=== PATIENT | female | born 1955 | race Caucasian/White ===

== ENCOUNTER 2016-10-22 06:09 | Day surgery (SDC) | payer OTHER ==
[2016-10-22] MEDS ORDERED: LACTATED RINGERS 1,000 ML IV ONE (06:57)
[2016-10-22] MEDS ORDERED: MIDAZOLAM 2 MG/2 ML VIAL IVP ONE (07:30)
[2016-10-22] MEDS ORDERED: fentaNYL 250 MCG/5 ML VIAL IVP ONE (07:30)
== END 2016-10-22 06:10 | disposition home or self-care (01) ==
PROC: 0DJD8ZZ Inspection of Lower Intestinal Tract, Via Natural or Artificial Opening Endoscopic (ICD-10-PCS; principal; 2016-10-22 07:30)
DX: Z12.11 Encounter for screening for malignant neoplasm of colon (principal); Q43.8 Other specified congenital malformations of intestine; K64.8 Other hemorrhoids; F41.9 Anxiety disorder, unspecified; Z87.891 Personal history of nicotine dependence; I10 Essential (primary) hypertension
CPT/HCPCS: 45378; J3010; J7120

== ENCOUNTER 2016-11-16 15:21 | Outpatient (CLI) | payer OTHER | END 2016-11-16 15:22 | disposition home or self-care (01) | DX: G47.30 Sleep apnea, unspecified (principal); R06.83 Snoring; G47.10 Hypersomnia, unspecified ==

== ENCOUNTER 2018-01-31 08:00 | Outpatient (CLI) | payer OTHER ==
[2018-01-31 14:00] LABS: BASOPHILS # (AUTO) 0.1 10^3/uL (0.0-0.1); EOSINOPHILS # (AUTO) 0.3 10^3/uL (0.0-0.7); LYMPHOCYTES # (AUTO) 1.5 10^3/uL (1.5-3.5); LYMPHOCYTES % (AUTO) 24.1 %; MEAN CORPUSCULAR HEMOGLOBIN 33.5 pg (27.0-31.0); MEAN CORPUSCULAR HGB CONC 33.9 g/dL (32.0-36.0); MEAN CORPUSCULAR VOLUME 98.6 fL (81.0-99.0); MEAN PLATELET VOLUME 9.3 fL (7.9-10.8); MONOCYTES # (AUTO) 0.5 10^3/uL (0.0-1.0); MONOCYTES % (AUTO) 8.4 %; NEUTROPHILS % (AUTO) 62.5 %; PLT - PLATELET COUNT 253 10^3/uL (130-450); RED BLOOD COUNT 4.17 10^6/uL (4.20-5.40); RED CELL DISTRIBUTION WIDTH 12.4 % (12.0-15.0); WHITE BLOOD COUNT 6.4 x10^3/uL (4.8-10.8)
[2018-01-31 14:15] LABS: ALBUMIN/GLOBULIN RATIO 1.2 (1.0-2.2); ALKALINE PHOSPHATASE 27 IU/L (42-121); ALT ALANINE AMINOTRANSFERASE 60 IU/L (10-60); AST ASPARTATE AMINOTRANSFERASE 46 IU/L (10-42); BILIRUBIN,TOTAL 0.7 mg/dL (0.2-1.0); BUN - BLOOD UREA NITROGEN 31 mg/dL (6-20); CALCIUM 9.2 mg/dL (8.5-10.3); CARBON DIOXIDE - CO2 28 mmol/L (21-32); CHLORIDE 102 mmol/L (101-111); CHOL/HDL RATIO 2.3 (<4.4); CHOLESTEROL 222 mg/dL; CREATININE 0.7 mg/dL (0.4-1.0); GFR - MDRD 85 (>89); GLUCOSE 101 mg/dL (70-100); HDL CHOLESTEROL 98 mg/dL; LDL CHOLESTEROL,CALCULATED 114 mg/dL; LDL/HDL RATIO 1.2 (<4.4); SODIUM 137 mmol/L (135-145); TOTAL PROTEIN 7.3 g/dL (6.7-8.2); VLDL CHOLESTEROL 10 mg/dL
[2018-01-31 14:23] LABS: HB2 TOTAL 15.5 g/dL; HEMOGLOBIN A1C 0.54 g/dL; HEMOGLOBIN A1C % 5.3 % (4.6-6.2)
== END 2018-01-31 08:01 | disposition home or self-care (01) ==
LOC: LAB.R 08:00
PROVIDERS: ATTEND Physician Assistant Medical
DX: Z00.00 Encounter for general adult medical examination without abnormal findings (principal); R73.01 Impaired fasting glucose
CPT/HCPCS: 80053; 80061; 83036; 83721; 84443; 85025

== ENCOUNTER 2018-02-23 10:37 | Outpatient (CLI) | payer OTHER ==
--- NOTE | 2018-02-23 13:04 | DEXA Report ---
Procedure Date: 02/23/2018 Accession Number: [id number] / [id number] Procedure: DEX - Dexa Spine and/or Hip CPT Code: FULL RESULT: EXAM: Dexa Spine and/or Hip DATE: 02/23/2018 11:02 AM CLINICAL HISTORY: POST MENOPAUSAL TECHNIQUE: Dual energy x-ray absorptiometry (DXA) was performed on a [employer]Near System. Regions measured are the AP Spine, femoral neck, and if needed forearm. COMPARISON: None. In accordance with the International Society for Clinical Densitometry (ISCD) guidelines, data from previous exams may be reanalyzed using current recommendations and techniques. This is done to allow a more accurate basis for comparison with the current study. FINDINGS: The data for the lumbar spine is as follows: BMD (g/cm/cm) T-SCORE Z-SCORE REGION L1 0.953 -1.5 -0.3 L2 0.965 -2.0 -0.8 L3 1.126 -0.6 0.6 L4 1.185 -0.1 1.1 TOTAL 1.071 -0.9 0.3 NOTE: All evaluable vertebrae are used for classification The data for the hip is as follows: BMD (g/cm/cm) T-SCORE Z-SCORE REGION Neck 0.992 -0.3 0.9 TOTAL 0.967 -0.3 0.6 NOTE: The femoral neck or total proximal femur, whichever is lowest, is used for classification. IMPRESSION: THE WHO CLASSIFICATION BASED ON THE INTERNATIONAL REFERENCE STANDARD IS NORMAL. THE FRACTURE RISK IS NOT INCREASED. RECOMMENDATION: Patients with diagnosis of osteoporosis or osteopenia should have regular bone mineral density assessment. For those eligible for Medicare, routine testing is allowed once every 2 years. Testing frequency can be increased for patients who have rapidly progressing disease or for those who are receiving medical therapy to restore bone mass. COMMENT: World Health Organization (WHO) definitions for osteoporosis and osteopenia: NORMAL BMD: T-score at -1.0 or higher, fracture risk is low OSTEOPENIA BMD: T-score between -1.0 and -2.5, fracture risk is increased. OSTEOPOROSIS BMD: T-score at -2.5 or lower, fracture risk is high. National Osteoporosis Foundation recommends: 1. Obtain adequate dietary calcium (at least 1200 mg per day) and vitamin D (400-800 international units per day). 2. Participate, as appropriate, in regular weightbearing and muscle-strengthening exercise. 3. Avoid tobacco use and reduce alcohol and caffeine intake. 4. For more detailed information see the website at www.NOF.org.
== END 2018-02-23 10:38 | disposition home or self-care (01) ==
LOC: DI 10:37
PROVIDERS: ATTEND Physician Assistant Medical
DX: Z78.0 Asymptomatic menopausal state (principal)
CPT/HCPCS: 77080

== ENCOUNTER 2018-02-23 10:39 | Outpatient (CLI) | payer OTHER ==
--- NOTE | 2018-02-24 16:48 | Mammography Report ---
Procedure Date: 02/23/2018 Accession Number: [id number] / [id number] Procedure: ISIS - Screening Mammo Dig Bilat CPT Code: FULL RESULT: EXAM: Screening Mammo Dig Bilat DATE: 02/23/2018 11:22 AM CLINICAL HISTORY: 62-year-old with history of late childbearing for screening TECHNIQUE: Bilateral CC, laterally exaggerated CC, MLO views were obtained. COMPARISON: The patient has had previous mammograms in the [facility]. Reports are available for comparison, but no films are available for comparison. As such, this will serve as a new baseline. FINDINGS: The breasts demonstrate heterogeneously dense fibroglandular parenchyma bilaterally. Punctate, typically benign calcifications are present. No suspicious masses, clustered microcalcifications, or regions of architectural distortion are identified. IMPRESSION: Benign findings RECOMMENDATION: Routine annual screening unless otherwise clinically indicated. BIRADS CATEGORY 2: Benign findings STANDARD QUALIFYING STATEMENTS: 1. This examination was reviewed with the aid of Computer-Aided Detection (CAD). 2. A negative or benign imaging report should not delay biopsy if clinically suspicious findings are present. Consider surgical consultation if warrented. More than 5% of cancers are not identified by imaging. 3. Dense breasts may obscure an underlying neoplasm.
== END 2018-02-23 10:40 | disposition home or self-care (01) ==
LOC: DI 10:39
PROVIDERS: ATTEND Physician Assistant Medical
DX: Z12.31 Encounter for screening mammogram for malignant neoplasm of breast (principal)
CPT/HCPCS: 77067

== ENCOUNTER 2018-03-01 09:10 | Outpatient (CLI) | payer OTHER | END 2018-03-01 09:11 | disposition home or self-care (01) | LOC: SC 09:10 | PROVIDERS: ATTEND Internal Medicine Pulmonary Disease | DX: G47.30 Sleep apnea, unspecified (principal); G47.10 Hypersomnia, unspecified; R06.83 Snoring; G47.8 Other sleep disorders | CPT/HCPCS: 99212; 99213 ==

== ENCOUNTER 2018-05-11 15:52 | Outpatient (CLI) | payer OTHER | END 2018-05-11 15:53 | disposition home or self-care (01) | LOC: SC 15:52 | PROVIDERS: ATTEND Nurse Practitioner Family | DX: G47.33 Obstructive sleep apnea (adult) (pediatric) (principal) | CPT/HCPCS: 99212; 99214 ==

== ENCOUNTER 2018-05-26 16:20 | Outpatient (CLI) | payer OTHER ==
[2018-05-26 18:51] LABS: ALBUMIN 4.1 g/dL (3.2-5.5); ALKALINE PHOSPHATASE 39 IU/L (42-121); ALT ALANINE AMINOTRANSFERASE 54 IU/L (10-60); AST ASPARTATE AMINOTRANSFERASE 42 IU/L (10-42); BILIRUBIN,TOTAL 0.6 mg/dL (0.2-1.0); TOTAL PROTEIN 6.7 g/dL (6.7-8.2)
[2018-05-26 19:13] LABS: BILIRUBIN,DIRECT < 0.1 mg/dL (0.1-0.5)
== END 2018-05-26 16:21 | disposition home or self-care (01) ==
LOC: LAB.R 16:20
PROVIDERS: ATTEND Physician Assistant Medical
DX: R84.5 Abnormal microbiological findings in specimens from respiratory organs and thorax (principal)
CPT/HCPCS: 80076

== ENCOUNTER 2019-03-15 11:24 | Outpatient (CLI) | payer BC ==
[2019-03-15 18:04] LABS: HB2 TOTAL 14.7 g/dL; HEMOGLOBIN A1C 0.59 g/dL; HEMOGLOBIN A1C % 5.8 % (4.6-6.2)
[2019-03-15 18:13] LABS: ALBUMIN 4.4 g/dL (3.2-5.5); ALBUMIN/GLOBULIN RATIO 1.8 (1.0-2.2); ALKALINE PHOSPHATASE 27 IU/L (42-121); ALT ALANINE AMINOTRANSFERASE 41 IU/L (10-60); AST ASPARTATE AMINOTRANSFERASE 39 IU/L (10-42); BILIRUBIN,TOTAL 0.6 mg/dL (0.2-1.0); BUN - BLOOD UREA NITROGEN 21 mg/dL (6-20); CALCIUM 9.3 mg/dL (8.5-10.3); CARBON DIOXIDE - CO2 28 mmol/L (21-32); CHLORIDE 103 mmol/L (101-111); CHOL/HDL RATIO 2.3 (<4.4); CHOLESTEROL 205 mg/dL; CREATININE 0.6 mg/dL (0.4-1.0); GFR - MDRD 102 (>89); GLUCOSE 107 mg/dL (70-100); HDL CHOLESTEROL 90 mg/dL; SODIUM 139 mmol/L (135-145); TOTAL PROTEIN 6.9 g/dL (6.7-8.2)
== END 2019-03-15 11:25 | disposition home or self-care (01) ==
LOC: LAB.S 11:24
PROVIDERS: ATTEND Internal Medicine
DX: E78.2 Mixed hyperlipidemia (principal); R73.01 Impaired fasting glucose
CPT/HCPCS: 36415; 80053; 80061; 83036; 83721

== ENCOUNTER 2021-01-24 08:07 | Outpatient (CLI) | payer OTHER ==
[2021-01-24 14:46] LABS: BASOPHILS # (AUTO) 0.1 10^3/uL (0.0-0.1); BASOPHILS % (AUTO) 0.8 %; EOSINOPHILS # (AUTO) 0.3 10^3/uL (0.0-0.7); EOSINOPHILS % (AUTO) 3.5 %; HCT - HEMATOCRIT 42.5 % (37.0-47.0); HGB - HEMOGLOBIN 14.1 g/dL (12.0-16.0); LYMPHOCYTES # (AUTO) 1.8 10^3/uL (1.5-3.5); LYMPHOCYTES % (AUTO) 25.2 %; MEAN CORPUSCULAR HGB CONC 33.2 g/dL (32.0-36.0); MEAN CORPUSCULAR VOLUME 102.4 fL (81.0-99.0); MEAN PLATELET VOLUME 11.4 fL (7.9-10.8); MONOCYTES # (AUTO) 0.7 10^3/uL (0.0-1.0); MONOCYTES % (AUTO) 9.8 %; NEUTROPHILS # (AUTO) 4.3 10^3/uL (1.5-6.6); NEUTROPHILS % (AUTO) 60.1 %; PLT - PLATELET COUNT 297 10^3/uL (130-450); RED BLOOD COUNT 4.15 10^6/uL (4.20-5.40); RED CELL DISTRIBUTION WIDTH 11.9 % (12.0-15.0); WHITE BLOOD COUNT 7.2 x10^3/uL (4.8-10.8)
[2021-01-24 15:29] LABS: THYROID STIMULATING HORMONE 2.56 uIU/mL (0.34-5.60)
[2021-01-24 15:33] LABS: ALBUMIN 4.3 g/dL (3.2-5.5); ALBUMIN/GLOBULIN RATIO 1.5 (1.0-2.2); ALKALINE PHOSPHATASE 27 IU/L (42-121); ALT ALANINE AMINOTRANSFERASE 27 IU/L (10-60); AST ASPARTATE AMINOTRANSFERASE 25 IU/L (10-42); BILIRUBIN,TOTAL 0.7 mg/dL (0.2-1.0); BUN - BLOOD UREA NITROGEN 21 mg/dL (6-20); CALCIUM 9.6 mg/dL (8.5-10.3); CARBON DIOXIDE - CO2 30 mmol/L (21-32); CHLORIDE 100 mmol/L (101-111); CHOL/HDL RATIO 2.5 (<4.4); CHOLESTEROL 221 mg/dL; CREATININE 0.7 mg/dL (0.4-1.0); GFR - MDRD 85 (>89); GLUCOSE 117 mg/dL (70-100); HDL CHOLESTEROL 89 mg/dL; LDL CHOLESTEROL,CALCULATED 121 mg/dL; LDL/HDL RATIO 1.4 (<4.4); POTASSIUM 4.2 mmol/L (3.5-5.0); SODIUM 139 mmol/L (135-145); TOTAL PROTEIN 7.1 g/dL (6.7-8.2); TRIGLYCERIDES 57 mg/dL; VLDL CHOLESTEROL 11 mg/dL
== END 2021-01-24 08:08 | disposition home or self-care (01) ==
LOC: LAB.S 08:07
PROVIDERS: ATTEND Registered Nurse
DX: E78.2 Mixed hyperlipidemia (principal); R73.01 Impaired fasting glucose; F41.9 Anxiety disorder, unspecified
CPT/HCPCS: 36415; 80053; 80061; 83721; 84443; 85025

== ENCOUNTER 2021-03-07 08:45 | Outpatient (CLI) | payer OTHER ==
[2021-03-07 09:03] VITALS: BP 138/86
--- NOTE | 2021-03-07 09:03 | SLEEP CARE CONSULTATION ---
Information from patient questionnaire entered by Claudia Cook. I have reviewed and concur with the information entered by Claudia Coko. This document represents the service I personally performed and the decisions made by , Hafsa Sheppard ARNP. History of Present Illness Service Date and Time: 03/07/2021 0845 Previous diagnosis: Mild, Obstructive Sleep Apnea-Hypopnea Syndrome AHI: 12.4 (in 2018) Reason for follow up: annual (last seen 04/2018), other (restart process) Prior sleep studies: Yes Year and Where: 2018 - [facility] Type of Sleep Study: Home sleep study HPI additional information: ROD LOJA was previously diagnosed to have mild, AHI 12.4, obstructive sleep apnea-hypopnea syndrome and returns today to restart process. She thinks she snores but she sleeps alone. She has gained weight since Covid pandemic started. She still does not feel rested in the mornings. She gets up 2-3 times a night for the bathroom and unknown causes. She has difficulty falling asleep, about an hour. She denies headaches in the mornings but is stuffy a lot of time. She does wake up with tongue dryness. Subjective Initial [place] Sleepiness Scale score: 7 (in 2017) Current [place] Sleepiness Scale score: 3 Allergies and Home Medications Home medication list reviewed: Yes (no changes) Review of Systems Review of systems same as previous: Yes (no changes) Physical Exam Blood Pressure: 138/86 Cuff size: wrist Heart Rate: 69 O2 Saturation: 97 Height: 5 ft 6 in Weight: 152 lb 12.8 oz Body Mass Index: 24.6 BMI Classification: Healthy weight Impression and Plan 1. Suspected Obstructive Sleep Apnea-Hypopnea Syndrome, as previously diagnosed with mild obstructive sleep apnea and as suggested by a continued history of loud and irregular snoring, frequent awakening during the night, unrefreshed sleep, and excessive daytime sleepiness. I recommend proceeding to polysomnography to confirm the diagnosis and to assess severity. If the patient has significant sleep disordered breathing, a manual CPAP titration study will also be performed to find the optimal treatment pressure. I informed the patient of what the sleep studies involve and after some discussion, obtained agreement to proceed. The pathophysiology of obstructive sleep apnea-hypopnea syndrome was discussed with the patient and health risks of cardiovascular and cerebrovascular disease if not treated. Risks of drowsy driving discussed in detail and patient advised to avoid long distance driving and to ear pull machine operator at the first sign of drowsiness. Patient agreed to plan. * Schedule polysomnography +- manual CPAP titration study and return in 1-2 weeks after the study to discuss result and initiate therapy. * Avoid long distance driving or driving when feeling sleepy. * Maintain a healthy weight. * Review instructions provided by trained office staff on how to prepare for the sleep study. * Return for follow-up after sleep study completed. Counseling Topics: Weight control Visit Type: In Office Time Spent with Patient (minutes): 12 Provider Statement: I spent 100% of the Face to Face Visit with the patient with greater than 50% spent counseling the patient and coordination of care.
== END 2021-03-07 08:46 | disposition home or self-care (01) ==
LOC: SC 08:45
PROVIDERS: ATTEND Nurse Practitioner Family
DX: G47.33 Obstructive sleep apnea (adult) (pediatric) (principal)
CPT/HCPCS: 99212

== ENCOUNTER 2021-03-17 09:55 | Outpatient (CLI) | payer OTHER | END 2021-03-17 09:56 | disposition home or self-care (01) | LOC: SC 09:55 | PROVIDERS: ATTEND Nurse Practitioner Family | DX: G47.33 Obstructive sleep apnea (adult) (pediatric) (principal); R09.02 Hypoxemia | CPT/HCPCS: 95806 ==

== ENCOUNTER 2021-03-21 07:42 | Outpatient (CLI) | payer OTHER ==
--- NOTE | 2021-03-24 15:52 | Mammography Report ---
BILATERAL DIGITAL SCREENING MAMMOGRAM 3D/2D: 03/21/2021 CLINICAL: Routine screening. Comparison is made to exam dated: 02/23/2018 mammogram - [facility]. The tissue of both breasts is heterogeneously dense. This may lower the sensitivity of mammography. There is a new irregular asymmetry in the left breast posterior depth superior region seen on the med iolateral oblique view only. Finding is best noted on tomographic MLO slice 32. This asymmetry ap pears to localize to the medial breast on tomosynthesis images. No other significant masses, calcifications, or other findings are seen in either breast. IMPRESSION: INCOMPLETE: NEEDS ADDITIONAL IMAGING EVALUATION The new irregular asymmetry in the left breast is indeterminate. Additional views with possible ultr asound are recommended. This exam was interpreted at Station ID: [id number]. NOTE: For mammograms, a report in lay terms will be sent to the patient. Approximately 15% of breast malignancies will not be visualized mammographically. In the management of a palpable breast mass, a negative mammogram must not discourage biopsy of a clinically suspicious lesion. Electronically Signed By: Andrzej godinez/holly:03/21/2021 08:27:18 ACR BI-RADS Category 0: Incomplete 3340F PARENCHYMAL PATTERN: (D) - The breast(s) demonstrate(s) heterogeneously dense fibroglandular patt lawson. BI-RADS CATEGORY: (0) - 0 Mammo and [place] [id number] Immediate follow-up LATERALITY: (L)
== END 2021-03-21 07:43 | disposition home or self-care (01) ==
LOC: DI 07:42
PROVIDERS: ATTEND Registered Nurse
DX: Z12.31 Encounter for screening mammogram for malignant neoplasm of breast (principal); N64.89 Other specified disorders of breast

== ENCOUNTER 2021-03-21 07:44 | Outpatient (CLI) | payer OTHER ==
--- NOTE | 2021-03-21 11:55 | DEXA Report ---
PROCEDURE: Dexa Spine and/or Hip INDICATIONS: SCREENING FOR OSTEOPOROSIS TECHNIQUE: Dual energy x-ray absorptiometry (DXA) was performed on a Proximus System. Regions measur ed are the AP Spine, femoral neck, and if needed forearm. COMPARISON: 01/24/2018 similar study. FINDINGS: Lumbar Spine: Bone Mineral Density 1.113 g/cm/cm,T score -0.6, normal. This represents a statistically significa nt improvement in bone mineral density of 3.9% comparison study in February 2018. Left Hip: Bone Mineral Density 0.970 g/cm/cm,T score -0.3, normal. This represents a statistically insignifica nt 0.3% improvement in bone mineral density from the comparison in February 2000. Left Femoral Neck: Bone Mineral Density 0.953 g/cm/cm, T score -0.6, normal. (T score greater or equal to -1.0: NORMAL) (T score from -1.1 to -2.4: OSTEOPENIA) (T score less than or equal to -2.5 to: OSTEOPOROSIS) Impression: Normal bone mineral density of the lumbosacral spine, left hip, and left femoral neck wit h a significant improvement in bone mineral density at the lumbosacral spine overall. Patients with diagnosis of osteoporosis or osteopenia should have regular bone mineral density assess ment. For those eligible for Medicare, routine testing is allowed once every 2 years. Testing frequ ency can be increased for patients who have rapidly progressing disease or for those who are receivin g medical therapy to restore bone mass. Reviewed by: Hayder Hernandez MD on 03/21/2021 11:54 AM PDT Approved by: Hayder Hernandez MD on 03/21/2021 11:54 AM PDT Station ID: [id number]
== END 2021-03-21 07:45 | disposition home or self-care (01) ==
LOC: DI 07:44
PROVIDERS: ATTEND Registered Nurse
DX: Z13.820 Encounter for screening for osteoporosis (principal)

== ENCOUNTER 2021-03-26 10:15 | Outpatient (CLI) | payer OTHER ==
--- NOTE | 2021-03-26 10:45 | SLEEP CARE CONSULTATION ---
Information from patient questionnaire entered by Claudia Cook. I have reviewed and concur with the information entered by Claudia Cook. This document represents the service I personally performed and the decisions made by , Hafsa Sheppard ARNP. History of Present Illness Service Date and Time: 03/26/2021 1015 Initial [place] Sleepiness Scale score: 7 (in 2017) Current [place] Sleepiness Scale score: 6 Additional HPI information: ROD LOJA returns for follow up and results of the recently performed home sleep study. I explained the pathophysiology behind obstructive sleep apnea. We then spent quite a bit of time discussing different treatment options. For mild obstructive sleep apnea, surgery and oral appliance are alternatives to nasal CPAP therapy but in moderate or severe cases, nasal CPAP is the most effective and reliable treatment. Because apnea is primarily in supine position, then positional management therapy could be effective. Methods discussed such as positioning with pillows, using a T-shirt with tennis balls in the back, and shown commercial products that have a pillow format on back to prevent supine sleep. I reviewed the impact of weight changes on sleep apnea. After some discussion, the patient opted to go with the nasal CPAP therapy. Nasal autoCPAP set at 4-15 cmH20 will be ordered with rationale explained. A manual titration study will be ordered if unable to find optimal pressure with office adjustments. I explained how CPAP machine works with sample devices RespirRe-APPs Dreamstation and ResDatameer [id number] and what to expect when using the machine. Using CPAP every night in order to get used to it was emphasized. Patient advised to put CPAP mask on before getting into bed so as not to fall asleep without CPAP. To assist acclimation to CPAP use, it could also be used for a short time during day while reading or watching TV. The patient was instructed to call the CPAP supplier to discuss any mechanical problem that may occur. If the mask given is uncomfortable or is difficult to keep on through the night even with adjustment, contact the CPAP supplier as many will replace with another mask style if notified before 30 days. If snoring or perceives is not getting enough air or too much air from the machine, notify this office. AAS patient education PAP tips reviewed and given to patient. Patient counseled not drink alcohol less than 4 hours before bedtime as it can increase snoring and apnea. Patient was cautioned about risks of drowsy driving until sleepiness symptoms resolve. Sleep Study - Results Type of Sleep Study: Home sleep study Prior sleep studies: Yes Year and Where: 2018 - [facility] Polysomnography/Home Sleep Study results: Physician Impression: The quality of the study is good. The length of the study is [id number] (< 240 minutes). Please also see the tabulated and graphic data. 1. Obstructive Sleep Apnea-Hypopnea (ICD-10 G47.33), moderate, with an AHI of 23.6/hr and jason SaO2 of 79%. During the study, the patient had 23 apneas (23 obstructive, 0 central, 0 mixed) and 19 hypopneas. The longest episode lasted 106.0 seconds. The respiratory events occurred more frequently during supine sleep (supine AHI was 37.1 and non-supine, 5.26). 2. Hypoxemia (ICD-10 R09.02), moderate, with the lowest oxygen saturation of 79 % and 15.0 minutes with SaO2 under 90%. Baseline oxygen saturation was normal (Average oxygen saturation was 91%). Allergies and Home Medications Home medication list reviewed: Yes (no changes) Review of Systems Review of systems same as previous: Yes (no changes) Physical Exam Heart Rate: 68 O2 Saturation: 95 Height: 5 ft 6 in Weight: 153 lb Body Mass Index: 24.7 BMI Classification: Healthy weight Impression and Plan 1. Obstructive Sleep Apnea-Hypopnea Syndrome, moderate, with lowest oxygen saturation of 79%. Obviously this is the cause of the patients symptoms of unrefreshed sleep, and excessive daytime sleepiness. Positive pressure therapy could benefit anxiety and fibromyalgia. As mentioned above, the patient will be started on nasal autoCPAP therapy with pressure set at 4-15 cmH2O. A manual titration study will be completed if unable to find optimal treatment pressure with office adjustments. Compliance guidelines also reviewed. A copy of compliance guidelines will be given for reference at check out. Because the apnea is more severe supine, I instructed to avoid sleeping supine using pillow positioning until able to start CPAP use. 2. Hypoxemia, moderate, with the lowest oxygen saturation of 79 % and 15.0 minutes with SaO2 under 90%. Her baseline oxygen saturation was normal with an average oxygen saturation of 91%. * Nasal auto CPAP therapy, pressure at 4-15 cm H2O. * Attempt to lose weight. * Avoid alcohol consumption near bedtime. * Avoid supine sleep until using CPAP. * The patient is again cautioned about driving until sleepiness completely resolves. * Return one month after CPAP obtained. I will assess response to therapy and compliance at that time. Counseling Topics: Weight control Visit Type: In Office Time Spent with Patient (minutes): 22 Provider Statement: I spent 100% of the Face to Face Visit with the patient with greater than 50% spent counseling the patient and coordination of care.
== END 2021-03-26 10:16 | disposition home or self-care (01) ==
LOC: SC 10:15
PROVIDERS: ATTEND Nurse Practitioner Family
DX: G47.33 Obstructive sleep apnea (adult) (pediatric) (principal)
CPT/HCPCS: 99212; 99213

== ENCOUNTER 2021-08-06 08:39 | Outpatient (CLI) | payer OTHER ==
--- NOTE | 2021-08-06 08:58 | SLEEP CARE CONSULTATION ---
Information from patient questionnaire entered by Randy Villalobos MA. I have reviewed and concur with the information entered by Randy Villalobos MA. This document represents the service I personally performed and the decisions made by , Hafsa Sheppard ARNP. History of Present Illness Service Date and Time: 08/06/2021 0840 Previous diagnosis: Mild, Obstructive Sleep Apnea-Hypopnea Syndrome AHI: 12.4 (in 2018) Reason for follow up: first compliance (SET UP 05 08 STARTED 07/07) Equipment type: CPAP Equipment obtained from: [employer] (got initial supplies but was difficult and drawn out) Mask style: Nasal Mask brand: Respironics Backup mask available: No (will need to keep old mask when replaced) Last cushion change: 1 month Prior sleep studies: Yes Year and Where: 2017 - [facility] Type of Sleep Study: Home sleep study HPI additional information: ROD LOJA was diagnosed to have mild, AHI 12.4, obstructive sleep apnea- hypopnea syndrome and returns via video Telehealth visit today for CPAP therapy first compliance follow-up. Sleep Study - Results Type of Sleep Study: Home sleep study Prior sleep studies: Yes Year and Where: 2018 - [facility] CPAP Compliance Data - Data Reviewed with Patient Average duration of nightly device use: 7 HOURS 19 MINUTES Compliance rate %: 93 Current pressure setting (cmH2O): 4-15 (median 7.7, avg 10.5, max 11.7) Average residual AHI: 3.1 Central apnea: 1.4 Obstructive apnea: 1.2 Subjective Patient concerns: reports: other (skin irritation under nose, increased size and is healing). denies: aerophagia, mask discomfort, air blowing in eyes, mask leak noise, condensation in mask/hose, nasal congestion, dry mouth, nose, throat, epistaxis Observed to snore while using device: No Current pressure setting perceived as: comfortable On therapy, patient: reports: sleeping better (still getting used to mask). denies: drowsiness while driving Initial [place] Sleepiness Scale score: 7 (in 2017) Current [place] Sleepiness Scale score: 6 Physical Exam Vital signs obtained and entered by: Telehealth visit to reduce exposure during Covid pandemic Height: 5 ft 6 in Impression and Plan 1. Obstructive Sleep Apnea-Hypopnea Syndrome, mild, with good treatment co mpliance and good apnea control. On CPAP therapy, the patient has better sleep quality and is more rested overall. Patient had some sores develop on the apex of her nose. She changed to a larger size mask and the sores are healing. She has had not other issues with CPAP or mask. The patients pressure will be changed to autoCPAP 8-12 cmH20 to reflect pressure being used. Patient advised to contact me if pressure change is uncomfortable so that it can be adjusted. Goals for apnea control discussed. Patient's apnea severity and rationale for treatment to reduce apnea, improve sleep quality and reduce cardiovascular and cerebrovascular events was reviewed. I also reviewed the benefit of consistent device use of CPAP for anxiety and fibromyalgia. Patient was advised to try to lose weight for her overall health and to reduce apneas. * Change auto CPAP pressure to 8-12 cmH2O * Notify me if snoring with mask or feeling that the pressure is too much or too little * Attempt to lose weight * Call this office if any problems using CPAP * Return for follow up in 1-2 months, or sooner if concerns arise Counseling Topics: Spare mask, Weight loss health impact Visit Type: Telehealth Video Video Type: VSee Patient Location: [place] Location of Provider: Office Patient agrees and consents to this telehealth visit type: Yes Patient agrees to have their insurance billed: Yes Time Spent with Patient (minutes): 16 Provider Statement: I spent 100% of the Telehealth Video Call with the patient with greater than 50% spent counseling the patient and coordination of care.
== END 2021-08-06 08:40 | disposition home or self-care (01) ==
LOC: SC 08:39
PROVIDERS: ATTEND Nurse Practitioner Family
DX: G47.33 Obstructive sleep apnea (adult) (pediatric) (principal)

== ENCOUNTER 2021-08-20 07:40 | Outpatient (CLI) | payer OTHER ==
--- NOTE | 2021-08-21 08:38 | Ultrasound Report ---
LIMITED ULTRASOUND OF LEFT BREAST AND AXILLA: 08/20/2021 CLINICAL: Patient returns today to evaluate a focal asymmetry in the left breast. Comparison is made to exams dated: 08/20/2021 mammogram, 03/21/2021 mammogram, and 02/23/2018 mammogram - [facility]. Color flow and real-time ultrasound of the left breast 10-1 o'clock, and axilla regions were perform ed. Conner scale images of the real-time examination were reviewed. There is a 1.4 cm x 0.7 cm x 1.1 cm irregular mass with indistinct and angular margins in the left br east at 10 o'clock posterior depth 9 cm from the nipple. This irregular mass is hypoechoic with post erior acoustic shadowing. This correlates with mammography findings. Color flow imaging demonstrate s that there is vascularity present. No significant abnormalities were seen sonographically in the left axilla. IMPRESSION: SUSPICIOUS OF MALIGNANCY The 1.4 cm x 0.7 cm x 1.1 cm irregular mass in the left breast is suspicious of malignancy. An ultra sound guided biopsy is recommended. Findings and recommendations were discussed with the patient by Dr. Benson during today's examination . This exam was interpreted at Station ID: [id number]. Electronically Signed By: Milad Clifford M.D. aty/:08/20/2021 10:53:27 Ultrasound BI-RADS: 4 Suspicious for malignancy BI-RADS CATEGORY: (4) - 4 None [id number] Immediate follow-up LATERALITY: ()
--- NOTE | 2021-08-21 08:38 | Mammography Report ---
UNILATERAL LEFT DIGITAL DIAGNOSTIC MAMMOGRAM 3D/2D: 08/20/2021 CLINICAL: Patient returns today to evaluate an asymmetry in the left breast. Comparison is made to exams dated: 03/21/2021 mammogram and 02/23/2018 mammogram - [facility]. The tissue of left breast is heterogeneously dense. This may lower the sensitivity of mamm ography. There is a 1 cm irregular equal density asymmetry in the left breast posterior depth superior region seen on the mediolateral oblique view only. Finding is best noted on tomographic ML slice 37. This is confirmed in additional views. There is architectural distortion associated with the asymmetry. This asymmetry appears to localize to the medial breast on tomosynthesis images but unable to confi rm on today's craniocaudal views. No other significant masses or calcifications are seen in the breast. IMPRESSION: INCOMPLETE: NEEDS ADDITIONAL IMAGING EVALUATION The 1 cm irregular equal density asymmetry in the left breast is indeterminate. An ultrasound is recommended for further evaluation and is scheduled to immediately follow this exami nation. This exam was interpreted at Station ID: [id number]. NOTE: For mammograms, a report in lay terms will be sent to the patient. Approximately 15% of breast malignancies will not be visualized mammographically. In the management of a palpable breast mass, a negative mammogram must not discourage biopsy of a clinically suspicious lesion. Electronically Signed By: Milad Clifford M.D. aty/:08/20/2021 09:43:55 ACR BI-RADS Category 0: Incomplete 3340F PARENCHYMAL PATTERN: (D) - The breast(s) demonstrate(s) heterogeneously dense fibroglandular patt lawson. BI-RADS CATEGORY: (0) - 0 Ultrasound [id number] Immediate follow-up LATERALITY: (L)
== END 2021-08-20 07:41 | disposition home or self-care (01) ==
LOC: DI 07:40
PROVIDERS: ATTEND Registered Nurse
DX: N63.22 Unspecified lump in the left breast, upper inner quadrant (principal)

== ENCOUNTER 2021-09-03 12:09 | Outpatient (CLI) | payer OTHER ==
[2021-09-03] MEDS ORDERED: lidocaine 1% 20 ML MDV ONE (12:22)
[2021-09-03] MEDS ORDERED: LIDOCAINE 1%-EPI 1:100000 20 ML MDV ONE (12:23)
[2021-09-03] MEDS: lidocaine 1% 20 ML MDV SUBQ ONE (14:13)
[2021-09-03] MEDS: LIDOCAINE 1%-EPI 1:100000 20 ML MDV SUBQ ONE (14:14)
--- NOTE | 2021-09-04 13:45 | Mammography Report ---
UNILATERAL LEFT DIGITAL DIAGNOSTIC MAMMOGRAM 3D/2D: 09/03/2021 CLINICAL: Post left breast ultrasound biopsy clip placement imaging. Comparison is made to exams dated: 08/20/2021 ultrasound, 08/20/2021 mammogram, 03/21/2021 mammogram, and 02/23/2018 mammogram - [facility]. The tissue of left breast is heterogeneously den se. This may lower the sensitivity of mammography. There is a marker clip in the appropriate position in the left breast superior medial quadrant gauge machine operator ior depth at the biopsy site. IMPRESSION: POST PROCEDURE MAMMOGRAM FOR MARKER PLACEMENT There was a successful marker clip placement in the left breast superior medial quadrant posterior de pth at the biopsy site. This exam was interpreted at Station ID: [id number]. Electronically Signed By: Gordy Acosta M.D. slc/:09/03/2021 14:41:28 ACR BI-RADS Category Post-procedure mammogram for marker placement PARENCHYMAL PATTERN: (D) - The breast(s) demonstrate(s) heterogeneously dense fibroglandular patt lawson. BI-RADS CATEGORY: () - Unspecified - other recall n/a LATERALITY: (B)
--- NOTE | 2021-09-08 09:42 | Ultrasound Report ---
ULTRASOUND GUIDED BIOPSY LEFT BREAST USING VACUUM DEVICE WITH MARKING DEVICE INSERTED AND POST DIGITA L MAMMOGRAPHIC IMAGIN09/03/2021 CLINICAL: Left breast mass. PATIENT CONSENT: Risks (minor bleeding, infection, vasovagal reaction and repeat procedure), benefits and alternatives were explained to the patient and written informed consent was obtained. Correlation is made to exams dated: 08/20/2021 ultrasound, 08/20/2021 mammogram, 03/21/2021 mammogram, and 02/23/2018 mammogram - [facility]. An ultrasound guided biopsy using real-time ultrasound was performed for the 1.6 cm x 1.6 cm x 0.7 cm indistinct irregular shaped mass located in the left breast at 10 o'clock posterior depth 9 cm from the nipple. This was described on the previous mammography and ultrasound reports. The skin was pre pped in the usual manner. Local anesthetic was administered to the access site. A skin aleja was mad e in the breast. The abnormality was approached from the lateral aspect. A 13 gauge biopsy needle w as placed adjacent to the abnormality under ultrasound guidance. Once the needle was documented to b e in the correct location, seven specimens were obtained using the Mammotome biopsy system. A Hydrom ark T4 clip was inserted into the biopsy cavity. A skin adhesive and a sterile dressing were applied to the access site. Post procedure digital mammographic imaging demonstrates the location device at the targeted area. The specimens were sent to the laboratory for pathological analysis. IMPRESSION: ULTRASOUND GUIDED BIOPSY MALIGNANT Ultrasound guided biopsy of the 1.6 cm x 1.6 cm x 0.7 cm mass in the left breast at 10 o'clock theatre program director ior depth 9 cm from the nipple was successful with no apparent post procedure complications. 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 A surgical/oncologic consultation is recommended. This exam was interpreted at Station ID: [id number]. Gordy Ivan M.D. [facility] – [place]/:09/08/2021 08:59:59 BI-RADS CATEGORY: () - Unspecified - other recall n/a LATERALITY: (B)
== END 2021-09-03 12:10 | disposition home or self-care (01) ==
LOC: DI 12:09
PROVIDERS: ATTEND Registered Nurse
DX: C50.212 Malignant neoplasm of upper-inner quadrant of left female breast (principal); Z17.0 Estrogen receptor positive status [ER+]
CPT/HCPCS: 19083

== ENCOUNTER 2021-09-25 16:00 | Outpatient (CLI) | payer OTHER ==
--- NOTE | 2021-09-25 16:15 | SLEEP CARE CONSULTATION ---
Information from patient questionnaire entered by Randy Villalobos MA. I have reviewed and concur with the information entered by Randy Villalobos MA. This document represents the service I personally performed and the decisions made by , Hafsa Sheppard ARNP. History of Present Illness Service Date and Time: 09/25/2021 1600 Previous diagnosis: Mild, Obstructive Sleep Apnea-Hypopnea Syndrome AHI: 12.4 (in 2018) Reason for follow up: other (2 MONTH F/U, PRESSURE CHANGE,) Equipment type: CPAP Equipment obtained from: [employer] (getting supplies as needed) Mask style: Nasal Backup mask available: Yes (old mask) Last cushion change: 1 month Prior sleep studies: Yes Year and Where: 2017 - [facility] Type of Sleep Study: Home sleep study HPI additional information: ROD LOJA was diagnosed to have mild, AHI 12.4, obstructive sleep apnea- hypopnea syndrome and returns via video Telehealth visit today for CPAP therapy two month with pressure changel follow-up. Sleep Study - Results Type of Sleep Study: Home sleep study Prior sleep studies: Yes Year and Where: 2017 - [facility] CPAP Compliance Data - Data Reviewed with Patient Average duration of nightly device use: 7 HOURS 12 MINUTES Compliance rate %: 92 Current pressure setting (cmH2O): 8-12 Average residual AHI: 3.1 Central apnea: 1.7 Obstructive apnea: 0.9 Average large leak: 18.3 Subjective Patient concerns: reports: mask leak noise (sometimes), dry mouth, nose, throat (occasional, when she forgot to fill her water chamber). denies: aerophagia, mask discomfort, air blowing in eyes, condensation in mask/hose, nasal congestion, epistaxis, other Observed to snore while using device: No Current pressure setting perceived as: comfortable On therapy, patient: reports: sleeping better, awakening more refreshed, being more awake and alert during the day, more rested overall. denies: drowsiness while driving Initial [place] Sleepiness Scale score: 7 (in 2017) Current [place] Sleepiness Scale score: 4 Allergies and Home Medications Home medication list reviewed: Yes (no changes) Allergy and home medication list: Allergies Opioids - Morphine Analogues Adverse Reaction (Verified 10/21/16 12:56) Nausea Review of Systems Review of systems same as previous: No (Breast Cancer, surgeon consultation) Physical Exam Vital signs obtained and entered by: Telehealth visit to reduce exposure during Covid pandemic Height: 5 ft 6 in Impression and Plan 1. Obstructive Sleep Apnea-Hypopnea Syndrome, mild, with good treatment complia nce and good apnea control. On CPAP therapy, the patient has better sleep quality and is more rested overall. Patient felt the pressure change has been comfortable and she is using the CPAP every night.She gets occasional dry mouth when she forgets to fill of her water chamber. She gets occasional air leaking around the mask but adjustment usually resolves this. Patient was recently diagnosed with breast cancer and she is consulting with the surgeon about this tomorrow. Patient's apnea severity and rationale for treatment to reduce apnea, improve sleep quality and reduce cardiovascular and cerebrovascular events was reviewed. I also reviewed the benefit of consistent device use of CPAP for anxiety and fibromyalgia. Patient encouraged to try to lose weight and maintain a healthy weight for her overall health and to reduce apneas. * Continue auto CPAP pressure at 8-12 cmH2O * Notify me if snoring with mask or feeling that the pressure is too much or too little * Attempt to lose weight * Call this office if any problems using CPAP * Return for follow up in 6 months, or sooner if concerns arise Counseling Topics: Spare mask, Weight loss health impact Visit Type: Telehealth Video Video Type: IBISee Patient Location: Home Location of Provider: Office Patient agrees and consents to this telehealth visit type: Yes Patient agrees to have their insurance billed: Yes Time Spent with Patient (minutes): 20 Provider Statement: I spent 100% of the Telehealth Video Call with the patient with greater than 50% spent counseling the patient and coordination of care.
== END 2021-09-25 16:01 | disposition home or self-care (01) ==
LOC: SC 16:00
PROVIDERS: ATTEND Nurse Practitioner Family
DX: G47.33 Obstructive sleep apnea (adult) (pediatric) (principal)

== ENCOUNTER 2022-03-02 11:48 | Day surgery (SDC) | payer OTHER ==
[2022-03-02] MEDS ORDERED: CEFAZOLIN SODIUM IN 0.9 % NACL 2 GM/50 ML BAG IV ONE (12:07)
[2022-03-02] MEDS ORDERED: LACTATED RINGERS 1,000 ML IV ONE ×2 (12:25→13:52)
[2022-03-02] MEDS ORDERED: SCOPOLAMINE PATCH TOP ONE (12:38)
[2022-03-02] MEDS ORDERED: HYDROmorphone 0.5 MG/0.5 ML SYRINGE IVP PRN (12:41)
[2022-03-02] MEDS ORDERED: METOCLOPRAMIDE 10 MG/2 ML VIAL IVP PRN (12:41)
[2022-03-02] MEDS ORDERED: MORPHINE 2 MG/ML CARPUJECT IVP PRN (12:41)
[2022-03-02] MEDS ORDERED: fentaNYL 100 MCG/2 ML VIAL IVP PRN (12:41)
[2022-03-02] MEDS ORDERED: ATROPINE ABBOJECT 1 MG/10 ML SYRINGE IVP PRN (12:41)
[2022-03-02] MEDS ORDERED: NALOXONE 0.4 MG/ML VIAL IVP PRN (12:41)
[2022-03-02] MEDS ORDERED: ePHEDrine 50 MG/ML VIAL IVP PRN (12:41)
[2022-03-02] MEDS ORDERED: ONDANSETRON 4 MG/2 ML VIAL IVP PRN ×2 (12:41→13:57)
--- NOTE | 2022-03-02 12:41 | ANESTHESIA ---
Pre-Anesthesia VS, & Labs - Diagnosis positive margin, left breast - Procedure re-excison margins, left breast Vital Signs: Temp Pulse Resp BP Pulse Ox 36. C L 75 19 151/76 H 96 03/02/22 12:08 03/02/22 12:08 03/02/22 12:08 03/02/22 12:08 03/02/22 12:08 Height: 5 ft 6 in Weight (kg): 70 kg Body Mass Index: 24.9 BMI Classification: Healthy weight - NPO >8 hours - Is Patient ?: No - Lab Results Lab results reviewed: Yes Home Medications and Allergies Active Medications Scopolamine HBr (Scopolamine Patch) 1 patch TOP Q3D JACEK Stop: 03/02/22 13:01 PARoxetine [Paxil] 5 mg ORAL DAILY 10/21/16 Ibuprofen [Motrin] 600 mg PO Q6H PRN 01/29/22 Allergies/Adverse Reactions: Allergies Allergy/AdvReac Type Severity Reaction Status Date / Time codeine AdvReac Hallucinati Verified 02/09/22 09:34 ons Opioids - Morphine Analogues AdvReac Nausea Verified 10/21/16 12:56 Anes History & Medical History - Anesthetic History Anesthesia Complications: reports: No previous complications Family history of Anesthesia Complications: Denies - Medical History Cardiovascular: reports: None Pulmonary: reports: Sleep apnea, CPAP use Gastrointestinal: reports: None Urinary: reports: None Musculoskeletal: reports: Osteoarthritis Endocrine/Autoimmune: reports: None Skin: reports: None Smoking Status: Former smoker - Surgical History General: reports: Colonoscopy Gynecologic: reports: section Orthopedic: reports: Arthroscopic surgery Exam General: Alert, Oriented x3, Cooperative Dental: WNL Mouth Openin Fingerbreadth Neck Mobility: Normal Mallampati classification: II Thyromental Distance: 4-6 cm Respiratory: Lungs clear, Normal breath sounds, No respiratory distress Cardiovascular: Regular rate Mental/Cognitive Status: Alert/Oriented X3, Normal for patient Cognitive Status: Within normal limits Plan Anesthesia Type: General Consent for Procedure(s) Verified and Reviewed: Yes Code Status: Attempt Resuscitation ASA classification: 3-Severe systemic disease Is this case an emergency?: No
[2022-03-02] MEDS ORDERED: BUPIVACAINE 0.25% PF 10 ML VIAL ONE (12:45)
[2022-03-02] MEDS ORDERED: LIDOCAINE 2%-EPI 1:100000 20 ML MDV ONE (12:45)
[2022-03-02] MEDS ORDERED: LACTATED RINGERS 1,000 ML IV SCH (13:00)
[2022-03-02] MEDS ORDERED: SCOPOLAMINE PATCH TOP SCH (13:00)
[2022-03-02] MEDS ORDERED: MIDAZOLAM 2 MG/2 ML VIAL ONE (13:04)
[2022-03-02] MEDS ORDERED: fentaNYL 100 MCG/2 ML VIAL ONE (13:04)
[2022-03-02] MEDS ORDERED: PROPOFOL 200 MG/20 ML VIAL IVP ONE (13:05)
[2022-03-02] MEDS ORDERED: LIDOCAINE-MPF 2% 5 ML VIAL ONE (13:05)
[2022-03-02] MEDS ORDERED: BUPIVACAINE 0.25% PF 10 ML VIAL SUBQ ONE ×2 (13:23)
[2022-03-02] MEDS ORDERED: LIDOCAINE 2%-EPI 1:100000 20 ML MDV SUBQ ONE ×2 (13:23)
[2022-03-02] MEDS ORDERED: diphenhydrAMINE INJ 50 MG/ML VIAL ONE (13:26)
[2022-03-02] MEDS ORDERED: METOCLOPRAMIDE 10 MG/2 ML VIAL ONE (13:26)
[2022-03-02] MEDS ORDERED: DEXAMETHASONE 4 MG/ML VIAL ONE (13:26)
[2022-03-02] MEDS ORDERED: SEVOFLURANE 250 ML LIQUID INH ONE (13:34)
--- NOTE | 2022-03-02 13:52 | OPERATIVE REPORT ---
Operative Report - General Procedure Date: 03/02/22 Planned Procedure: Evacuation of left breast hematoma and reexcision of posterior margin Pre-Op Diagnosis: Positive posterior margin following lumpectomy for biopsy- proven malignancy Procedure Performed: Evacuation of left breast hematoma and reexcision of posterior margin Post Op Diagnosis: Positive posterior margin following lumpectomy for biopsy- proven malignancy - Procedure Note Primary Surgeon: Manoj Anesthesia Provider: DIYA Hernandes Anesthesia Technique: General LMA, Local Pathology: Posterior margin marked for orientation and submitted to pathology in formalin IV Fluids (mL): 600 Estimated Blood Loss (mL): 5 Indications: Multifocal left breast cancer with a positive posterior margin Findings: hematoma of the left breast Posterior margin is the pectoralis muscle. Complications: None apparent - Other Other Information/Narrative: After obtaining informed consent, the patient is brought to the. Following successful induction of general anesthesia, appropriate padding of all bony cyst, and placement of appropriate orders, the left chest and breast were prepped and draped in the standard surgical fashion. A timeout was held per scope protocol. All elements of the surgical safety checklist were followed before, during and after the procedure. The existing periareolar incision was reopened carried through the skin into the subcutaneous tissue. We immediately encountered a hematoma/seroma. This was aspirated to help with suction. The biopsy cavity was then irrigated copiously with warm water until the water was clear. The posterior margin of the cavity was then grasped with an Allis clamp margin was sharply excised it was placed in formalin to be submitted to pathology. The wound was then checked for hemostasis. When we were satisfied, the incision was closed in 2 layers with Vicryl and Monocryl sutures., Needle, and instrument counts were correct at the conclusion of the case. The patient was allowed to wake from anesthesia without difficulty and taken to the postanesthesia care unit in good condition.
[2022-03-02] MEDS ORDERED: ACETAMINOPHEN 325 MG TABLET PO PRN (13:57)
[2022-03-02] MEDS ORDERED: oxyCODONE 5 MG TABLET PO PRN (13:57)
[2022-03-02] MEDS ORDERED: IBUPROFEN 600 MG TABLET PO PRN (13:57)
--- NOTE | 2022-03-02 14:16 | ANESTHESIA POST OP EVALUATION ---
Anesthesia Post Eval - Post Anesthesia Eval Vitals: Last Vital Signs Temp 36.8 C 03/02/22 14:10 Pulse 72 03/02/22 14:10 Resp 16 03/02/22 14:10 BP 140/71 H 03/02/22 14:10 Pulse Ox 96 03/02/22 14:10 CV Function Including HR & BP: Stable Pain Control: Satisfactory Nausea & Vomiting: Negative Mental Status: Baseline Respiratory Status: Airway Patent Hydration Status: Satisfactory Anesthesia Complications: None
[2022-03-02 15:09] VITALS: BP 131/68
== END 2022-03-02 11:49 | disposition home or self-care (01) ==
LOC: SDS 11:48
PROVIDERS: ATTEND Surgery
PROC: 0HBU0ZZ Excision of Left Breast, Open Approach (ICD-10-PCS; principal; 2022-03-02 13:15)
DX: C50.912 Malignant neoplasm of unspecified site of left female breast (principal); G47.30 Sleep apnea, unspecified; Z87.891 Personal history of nicotine dependence
CPT/HCPCS: 19301; A9270; J0690; J1200; J2765; J3490; J7120

== ENCOUNTER 2022-11-18 09:44 | Outpatient (CLI) | payer OTHER ==
[2022-11-18 10:22] VITALS: BP 136/78
--- NOTE | 2022-11-18 10:22 | SLEEP CARE CONSULTATION ---
Information from patient questionnaire entered by Michelle Oleary. I have reviewed and concur with the information entered by Michelle Oleary. This document represents the service I personally performed and the decisions made by , Hafsa Sheppard ARNP. History of Present Illness Service Date and Time: 11/18/2022 0944 Previous diagnosis: Mild, Obstructive Sleep Apnea-Hypopnea Syndrome AHI: 12.4 (in 2018) Reason for follow up: annual (LAST SEEN 09/2021) Equipment type: CPAP (RESMED Airsense 11, s/u 04/2021) Equipment obtained from: [employer] (getting supplies as needed) Mask style: Nasal pillows Mask brand: Resmed (Airfit P30i) Backup mask available: Yes (old mask) Last cushion change: one month Prior sleep studies: Yes Year and Where: 2017 - [facility] Type of Sleep Study: Home sleep study HPI additional information: ROD LOJA was diagnosed to have mild, AHI 12.4, obstructive sleep apnea- hypopnea syndrome and returned today for CPAP therapy annual follow-up. Sleep Study - Results Type of Sleep Study: Home sleep study Prior sleep studies: Yes Year and Where: 2017 - [facility] CPAP Compliance Data - Data Reviewed with Patient Average duration of nightly device use: 8 HRS 26 MINS Compliance rate %: 90 (05/21/22-11/16/22; 169/180 days used) Current pressure setting (cmH2O): 8-12 Average residual AHI: 1.6 Central apnea: 0.7 Obstructive apnea: 0.6 Average large leak: 1.0 lpm Subjective Missed days of use due to: reports: illness (had flu and pneumonia) Patient concerns: reports: dry mouth, nose, throat (dry mouth for couple days (may be due to allergies and not breathing through nose)). denies: aerophagia, mask discomfort, air blowing in eyes, mask leak noise, condensation in mask/hose, nasal congestion, epistaxis Observed to snore while using device: No Current pressure setting perceived as: comfortable On therapy, patient: reports: sleeping better, awakening more refreshed, being more awake and alert during the day, more rested overall. denies: drowsiness while driving Initial [place] Sleepiness Scale score: 7 (in 2017) Current [place] Sleepiness Scale score: 7 (11/19/22) Allergies and Home Medications Known drug allergies: Yes (codiene, opiods-morphine analoques) Drug allergies reviewed: Yes Home medication list reviewed: Yes (no changes) Allergy and home medication list: Allergies codeine Adverse Reaction (Verified 11/17/22 14:15) Hallucinations Opioids - Morphine Analogues Adverse Reaction (Verified 11/17/22 14:15) Nausea Review of Systems Review of systems same as previous: No (breast cancer, stage 1, surgery/radiation treatment) Physical Exam Vital signs obtained and entered by: MICHELLE Pop MA Blood Pressure: 136/78 (LEFT ARM) Cuff size: regular Heart Rate: 72 O2 Saturation: 95 Height: 5 ft 6 in Weight: 162 lb Body Mass Index: 26.1 BMI Classification: Overweight Impression and Plan 1. Obstructive Sleep Apnea-Hypopnea Syndrome, mild, with good treatment compliance and good apnea control. On CPAP therapy, the patient has better sleep quality and is more rested overall. Patient has significant improvement of their sleep apnea and is satisfied with current CPAP therapy. Patient has had a little dry mouth the last couple of days but states this is not normal. We discussed that she may be having some allergies causing congestion in her nose. She thinks this is probably the case. We discussed ways of keeping her mouth closed such as chinstrap or mouth strips, as needed. She voiced understanding. Patient's apnea severity and rationale for treatment to reduce apnea, improve sleep quality and reduce cardiovascular and cerebrovascular events was reviewed. I also reviewed the benefit of consistent device use of CPAP for anxiety and fibromyalgia. 2. Overweight, unspecified. Currently patients BMI is 26.1. Obesity increases the risk of apnea, CPAP pressure requirements and overall health risks especially cardiovascular and diabetes. Thus patient is advised to lose weight. * Continue auto CPAP pressure at 8-12 cmH2O * Update supplies * Notify me if snoring with mask or feeling that the pressure is too much or too little * Attempt to lose weight * Call this office if any problems using CPAP * Return for follow up in 1 year, or sooner if concerns arise Counseling Topics: Spare mask, Weight loss health impact Visit Type: In Office Time Spent with Patient (minutes): 12 Provider Statement: I spent 100% of the Face to Face Visit with the patient with greater than 50% spent counseling the patient and coordination of care.
== END 2022-11-18 09:45 | disposition home or self-care (01) ==
LOC: SC 09:44
PROVIDERS: ATTEND Nurse Practitioner Family
DX: G47.33 Obstructive sleep apnea (adult) (pediatric) (principal); E66.3 Overweight; Z68.26 Body mass index [BMI] 26.0-26.9, adult
CPT/HCPCS: 99212

== ENCOUNTER 2022-12-31 08:35 | Outpatient (CLI) | payer OTHER ==
--- NOTE | 2022-12-31 12:27 | Mammography Report ---
BILATERAL DIGITAL DIAGNOSTIC MAMMOGRAM 3D/2D: 12/31/2022 CLINICAL: Personal history of left breast cancer. Post left lumpectomy and radiation therapy. Due for bilateral imaging. Comparison is made to exams dated: 02/09/2022 mammogram - [facility], 12/31/2021 chaparro mogram - [facility], 02/09/2022 localization - [facility], 12/31/2021 MRI biopsy - [facility], 10/22/2021 breast MRI - [facility], and 09/03/2021 mammogram - [facility]. Both breasts are heterogeneously dense, which may obscure small masses (category c / 51-75% glandular tissue). There are benign post operative findings in the left breast. No significant masses, calcifications, or other findings are seen in either breast. There has been no significant interval change. IMPRESSION: BENIGN There is no mammographic evidence of malignancy. A 1 year screening mammogram is recommended. Amparo reddy was advised to return sooner than 1 year if there is any clinically suspicious changes, in consulta tion with her doctor. This exam was interpreted at Station ID: [id number]. NOTE: For mammograms, a report in lay terms will be sent to the patient. Approximately 15% of breast malignancies will not be visualized mammographically. In the management of a palpable breast mass, a negative mammogram must not discourage biopsy of a clinically suspicious lesion. Electronically Signed By: Manoj Pearce M.D. /:12/31/2022 09:32:07 letter sent: No_Letter ACR BI-RADS Category 2: Benign Finding(s) 3342F PARENCHYMAL PATTERN: (D) - The breast(s) demonstrate(s) heterogeneously dense fibroglandular parmookie lawson. BI-RADS CATEGORY: (2) - 2 Mammogram [id number] 1 year screening LATERALITY: (B)
== END 2022-12-31 08:36 | disposition home or self-care (01) ==
LOC: DI 08:35
PROVIDERS: ATTEND Internal Medicine
DX: C50.912 Malignant neoplasm of unspecified site of left female breast (principal)

== ENCOUNTER 2023-02-05 08:23 | Outpatient (CLI) | payer OTHER ==
[2023-02-05 09:07] LABS: CHOL/HDL RATIO 1.7 (<4.4); CHOLESTEROL 157 mg/dL; HDL CHOLESTEROL 93 mg/dL; LDL CHOLESTEROL,CALCULATED 54 mg/dL; LDL/HDL RATIO 0.6 (<4.4); TRIGLYCERIDES 52 mg/dL; VLDL CHOLESTEROL 10 mg/dL
[2023-02-05 09:36] LABS: ESTIMATED AVERAGE GLUCOSE 120 mg/dL (70-100); HEMOGLOBIN A1c% 5.8 % (4.27-6.07)
== END 2023-02-05 08:24 | disposition home or self-care (01) ==
LOC: LAB 08:23
PROVIDERS: ATTEND Physician Assistant
DX: E78.2 Mixed hyperlipidemia (principal); R73.03 Prediabetes
CPT/HCPCS: 36415; 80061; 83036; 83721

== ENCOUNTER 2023-09-20 08:14 | Outpatient (CLI) | payer OTHER ==
--- NOTE | 2023-09-20 09:05 | DEXA Report ---
PROCEDURE: Dexa Spine and/or Hip INDICATIONS: POST MENOPAUSAL TECHNIQUE: Dual energy x-ray absorptiometry (DXA) was performed on a [employer] System. Regions measur ed are the AP Spine, femoral neck, and if needed forearm. COMPARISON: 03/21/2021 FINDINGS: Lumbar Spine: Bone Mineral Density: 1.143 g/cm/cm,T score: -0.3. There is interval 2.7% increase in total lumbar s pine bone density Left Femoral Neck: Bone Mineral Density: 0.896 g/cm/cm, T score: -1.0. Left Hip: Bone Mineral Density: 0.924 g/cm/cm,T score: -0.7. There is interval 4.7% decrease in left total hip bone density (T score greater or equal to -1.0: NORMAL) (T score from -1.1 to -2.4: OSTEOPENIA) (T score less than or equal to -2.5 to: OSTEOPOROSIS) Impression: By WHO criteria, this patient has normal bone density. Interval statistical increase in bone mineral density of the lumbar spine. Interval statistical decre ase in bone mineral density of the hip. Patients with diagnosis of osteoporosis or osteopenia should have regular bone mineral density assess ment. For those eligible for Medicare, routine testing is allowed once every 2 years. Testing frequ ency can be increased for patients who have rapidly progressing disease or for those who are receivin g medical therapy to restore bone mass. Reviewed by: Yimi Rodriguez MD on 09/20/2023 9:04 AM PST Approved by: Yimi Rodriguez MD on 09/20/2023 9:04 AM PST Station ID: [id number]
== END 2023-09-20 08:15 | disposition home or self-care (01) ==
LOC: DI 08:14
PROVIDERS: ATTEND Physician Assistant
DX: Z78.0 Asymptomatic menopausal state (principal)

== ENCOUNTER 2023-12-30 08:46 | Outpatient (CLI) | payer OTHER ==
--- NOTE | 2023-12-31 08:46 | Ultrasound Report ---
LIMITED ULTRASOUND OF LEFT BREAST: 12/30/2023 CLINICAL: Patient returns today to evaluate a focal asymmetry in the left breast. Personal history of left breast cancer. Comparison is made to exams dated: 12/30/2023 mammogram, 12/31/2022 mammogram, 02/09/2022 specimen, 01/15 mammogram, 02/09/2022 localization - [facility], and 12/31/2021 mammogram - [facility]. Color flow and real-time ultrasound of the left breast 12 o'clock region were performed. Conner scale images of the real-time examination were reviewed. No significant abnormalities were seen sonographically in the left breast. Specifically, no finding to correspond to the patient's mammographic abnormality deep to the surgical scar. IMPRESSION: PROBABLY BENIGN NO sonographic correlate to the mammogram finding in the left breast deep to the surgical scar. Developing left breast asymmetry may be surgical changes, however a follow-up left mammogram and an u ltrasound in 6 months is recommended to demonstrate stability. Findings and recommendations were conveyed to the patient at time of exam. This exam was interpreted at Station ID: [id number]. Electronically Signed By: Lubna la/:12/30/2023 11:04:55 Ultrasound BI-RADS: 3 Probably benign BI-RADS CATEGORY: (3) - 3 Mammo and [place] [id number] 6 month follow-up LATERALITY: (L)
--- NOTE | 2023-12-31 08:46 | Mammography Report ---
BILATERAL DIGITAL DIAGNOSTIC MAMMOGRAM 3D/2D: 12/30/2023 CLINICAL: Oncology follow up of left breast cancer. Due for bilateral exam. Comparison is made to exams dated: 12/31/2022 mammogram, 02/09/2022 mammogram - [facility], 12/31/2021 mammogram - [facility], 09/03/2021 mammogram, 08/20/2021 mammogram, and 03/21/2021 mammogram - [facility]. Both breasts are heterogeneously dense, which may obscure small masses (category c / 51-75% glandular tissue). There is a possible developing irregular equal density asymmetry with a spiculated margin in the left breast at 12 o'clock posterior depth. This is not seen in additional views. This is more prominent . There is a post-surgical scar overlying the asymmetry. No other significant masses, calcifications, or other findings are seen in either breast. Right sudheer st mammogram is stable. IMPRESSION: INCOMPLETE: NEEDS ADDITIONAL IMAGING EVALUATION The possible developing irregular equal density asymmetry in the left breast is indeterminate. An ul trasound is recommended. This was performed immediately following this exam. Right mammogram is stable. This exam was interpreted at Station ID: [id number]. NOTE: For mammograms, a report in lay terms will be sent to the patient. Approximately 15% of breast malignancies will not be visualized mammographically. In the management of a palpable breast mass, a negative mammogram must not discourage biopsy of a clinically suspicious lesion. Electronically Signed By: Lubna la/:12/30/2023 11:03:04 ACR BI-RADS Category 0: Incomplete 3340F PARENCHYMAL PATTERN: (D) - The breast(s) demonstrate(s) heterogeneously dense fibroglandular parenchy ma. BI-RADS CATEGORY: (0) - 0 Ultrasound [id number] Immediate follow-up LATERALITY: (B)
== END 2023-12-30 08:47 | disposition home or self-care (01) ==
LOC: DI 08:46
PROVIDERS: ATTEND Internal Medicine
DX: Z12.31 Encounter for screening mammogram for malignant neoplasm of breast (principal); R92.333 Mammographic heterogeneous density, bilateral breasts; R92.8 Other abnormal and inconclusive findings on diagnostic imaging of breast; Z85.3 Personal history of malignant neoplasm of breast

== ENCOUNTER 2024-02-08 11:08 | Outpatient (CLI) | payer OTHER ==
--- NOTE | 2024-02-08 11:23 | Sleep Patient Instructions ---
Sleep Center Visit Summary - Patient Visit Information Reason for Visit: Annual follow-up - Patient Instructions Additional Instructions: You will continue with CPAP therapy with pressure set at 8-12 cmH2O. A supply prescription will be updated with your DME. Please follow up with the sleep care office in 1 year. - Clinic Information Contact: [facility] [address] [place] [id number] [email or web address] T: [phone]
--- NOTE | 2024-02-08 11:28 | SLEEP CARE CONSULTATION ---
Information from patient questionnaire entered by Michelle Oleary. I have reviewed and concur with the information entered by Michelle Oleary. This document represents the service I personally performed and the decisions made by , Hafsa Sheppard ARNP. History of Present Illness Service Date and Time: 02/08/2024 1108 Previous diagnosis: Mild, Obstructive Sleep Apnea-Hypopnea Syndrome AHI: 12.4 (in 2018) Reason for follow up: annual (LAST SEEN 11/2022) Equipment type: CPAP (RESMED Airsense 11, s/u 04/2021) Equipment obtained from: [facility] (getting supplies as needed) Mask style: Nasal pillows Backup mask available: Yes Last cushion change: 3 weeks ago Prior sleep studies: Yes Year and Where: 2017 - [facility] Type of Sleep Study: Home sleep study HPI additional information: ROD LOJA was diagnosed to have mild, AHI 12.4, obstructive sleep apnea- hypopnea syndrome and returned today for CPAP therapy annual follow-up. Sleep Study - Results Type of Sleep Study: Home sleep study Prior sleep studies: Yes Year and Where: 2017 - [facility] CPAP Compliance Data - Data Reviewed with Patient Average duration of nightly device use: 8 HRS 52 MINS Compliance rate %: 98 (02/07/23-02/06/24; 363/365 days used) Current pressure setting (cmH2O): 8-12 Average residual AHI: 1.4 Central apnea: 0.3 Obstructive apnea: 0.8 Hypopnea: 0.3 Average large leak: 1.3 L/min Subjective Missed days of use due to: reports: illness, other (electric outage) Patient concerns: denies: aerophagia, mask discomfort, air blowing in eyes, mask leak noise, condensation in mask/hose, nasal congestion, dry mouth, nose, throat, epistaxis Observed to snore while using device: No Current pressure setting perceived as: comfortable On therapy, patient: reports: sleeping better, awakening more refreshed, being more awake and alert during the day, more rested overall. denies: drowsiness while driving Initial [place] Sleepiness Scale score: 7 (in 2017) Current [place] Sleepiness Scale score: 5 (02/08/24) Allergies and Home Medications Known drug allergies: Yes (as listed) Drug allergies reviewed: Yes Home medication list reviewed: Yes (no changes) Allergy and home medication list: Allergies codeine Adverse Reaction (Verified 02/07/24 15:02) Hallucinations Opioids - Morphine Analogues Adverse Reaction (Verified 02/07/24 15:02) Nausea Review of Systems Review of systems same as previous: Yes (NO CHANGE) Physical Exam Vital signs obtained and entered by: MICHELLE Pop MA Blood Pressure: 144/80 (LEFT ARM) Cuff size: regular Heart Rate: 76 O2 Saturation: 97 Height: 5 ft 6 in Weight: 160 lb 3.2 oz Body Mass Index: 25.8 BMI Classification: Overweight Impression and Plan 1. Obstructive Sleep Apnea-Hypopnea Syndrome, mild, with good treatment compliance and good apnea control. On CPAP therapy, the patient has better sleep quality and is more rested overall. She has significant improvement of her sleep apnea and is satisfied with current CPAP therapy. Patient denies problems with oral dryness, nasal congestion, epistaxis, skin irritation or aerophagia. Patient's apnea severity and rationale for treatment to reduce apnea, improve sleep quality and reduce cardiovascular and cerebrovascular events was reviewed. I also reviewed the benefit of consistent device use of CPAP for anxiety, fibromyalgia. 2. Overweight, minimal. Currently patients BMI is 25.8. Obesity increases the risk of apnea, CPAP pressure requirements and overall health risks especially cardiovascular and diabetes. Thus patient is advised to maintain healthy weight. * Continue auto CPAP pressure at 8-12 cmH2O * Update supply prescription * Notify me if snoring with mask or feeling that the pressure is too much or too little * Call this office if any problems using CPAP * Return for follow up in 12 months, or sooner if concerns arise Counseling Topics: Spare mask, Weight control Prescriptions: Device supplies Follow up with Sleep Care in: 1 year Visit Type: In Office Time Spent with Patient (minutes): 20 Provider Statement: I spent 100% of the Face to Face Visit with the patient with greater than 50% spent counseling the patient and coordination of care.
[2024-02-09 09:48] VITALS: BP 157/77; O2SAT 96
== END 2024-02-08 11:09 | disposition home or self-care (01) ==
LOC: SC 11:08
PROVIDERS: ATTEND Nurse Practitioner Family
DX: G47.33 Obstructive sleep apnea (adult) (pediatric) (principal); E66.3 Overweight; Z68.25 Body mass index [BMI] 25.0-25.9, adult
CPT/HCPCS: 99212; 99213

== ENCOUNTER 2024-03-29 10:06 | Outpatient (CLI) | payer OTHER ==
--- NOTE | 2024-04-03 07:57 | XRAY Report ---
PROCEDURE: Shoulder 2+V RT INDICATIONS: RIGHT SHOULDER PAIN TECHNIQUE: 3 views of the shoulder were acquired. COMPARISON: None. FINDINGS: Bones: No fracture or subluxation seen. Narrowing of the DJD joint and the acromioclavicular joint i s seen likely representing DJD of these joints. Soft tissues: Visualized lungs appear clear. IMPRESSION: Suggestion of degenerative joint disease of the acromioclavicular joint and the glenohumeral joints No acute osseous abnormality. Reviewed by: Samir Casey MD on 04/03/2024 7:56 AM PDT Approved by: Samir Casey MD on 04/03/2024 7:56 AM PDT Station ID: [id number]
--- NOTE | 2024-04-03 08:03 | XRAY Report ---
PROCEDURE: Knee 4+V BL INDICATIONS: OA BILATERAL KNEES TECHNIQUE: 4 views of the right and left knee were acquired. COMPARISON: None. FINDINGS: Bones: No fracture or subluxation seen. Severe tricompartmental degenerative changes of both knees ar e seen especially in the medial compartments bilaterally with osteophytes, joint space narrowing subc hondral sclerosis. Soft tissues: Small suprapatellar joint effusion IMPRESSION: Severe tricompartment DJD especially of the medial comparison bilaterally No acute osseous abnormality Reviewed by: Samir Casey MD on 04/03/2024 8:02 AM PDT Approved by: Samir Casey MD on 04/03/2024 8:02 AM PDT Station ID: [id number]
== END 2024-03-29 10:07 | disposition home or self-care (01) ==
LOC: DI 10:06
PROVIDERS: ATTEND Physician Assistant
DX: M25.511 Pain in right shoulder (principal); M17.0 Bilateral primary osteoarthritis of knee